=== PATIENT | male | born 1975 | race Caucasian/White ===

== ENCOUNTER 2019-08-18 10:57 | Emergency (ER) | payer MEDICAID, OTHER ==
[2019-08-18 11:49] VITALS: BP 138/97
--- NOTE | 2019-08-18 12:37 | UC ---
Upper Extremity HPI - HPI Summary HPI Summary: Pt presents with c/o atraumatic neck pain that radiates "down left arm" that began 7 days ago. Pt denies chest pain or SOB. Pt is a heavy every day smoker. He works as a patient transitional care nurse at assisted. Pt also reports that he pulle da tick off his chest yesterday morning. - History of Current Complaint Chief Complaint: UCBackPain Stated Complaint: LEFT NECK/ARM PAIN Time Seen by Provider: 08/18/19 12:12 Hx Obtained From: Patient ?: No Severity Initially: Severe Severity Currently: Severe Pain Intensity: 10 Location Of Pain: Radiates To - left arm Character: Dull, Aching Aggravating Factor(s): Movement, Lifting, Flexion, Extension Alleviating Factor(s): Nothing Associated Signs And Symptoms: Positive: Negative Related History: Dominant Hand Right - Risk Factors Non-Orthopedic Risk Factor: Negative DVT Risk Factors: Smoking Septic Arthritis Risk Factor: Negative Compartment Syndrome Risk Factors: Pain - Allergies/Home Medications Allergies/Adverse Reactions: Allergies Allergy/AdvReac Type Severity Reaction Status Date / Time No Known Allergies Allergy Verified 08/18/19 11:43 Home Medications: Home Medications Ibuprofen TAB* [Advil TAB*] 800 mg PO Q8H 08/18/19 [History Confirmed 08/18/19] PMH/Surg Hx/FS Hx/Imm Hx Previously Healthy: Yes - Surgical History Surgical History: Yes Surgery Procedure, Year, and Place: Lithotripsy 2017 - Family History Known Family History: Positive: Cardiac Disease - Social History Occupation: Employed Full-time Lives: With Family Alcohol Use: None Substance Use Type: None Smoking Status (MU): Heavy Every Day Tobacco Smoker Type: Cigarettes Amount Used/How Often: 2 PPD Have You Smoked in the Last Year: Yes Household Exposure Type: Cigarettes - Immunization History Most Recent Tetanus Shot: 1994 Vaccination Up to Date: No Review of Systems All Other Systems Reviewed And Are Negative: Yes Constitutional: Positive: Negative Skin: Positive: Negative Eyes: Positive: Negative ENT: Positive: Negative Respiratory: Positive: Negative Cardiovascular: Positive: Negative Gastrointestinal: Positive: Negative Genitourinary: Positive: Negative Motor: Positive: Negative Neurovascular: Positive: Negative Musculoskeletal: Positive: Myalgia - neck that radiates to left arm Neurological: Positive: Negative Psychological: Positive: Negative Is Patient Immunocompromised?: No Physical Exam Triage Information Reviewed: Yes Appearance: Ill-Appearing Vital Signs: Initial Vital Signs Temp 98.8 F 08/18/19 11:44 Pulse 96 08/18/19 11:44 Resp 16 08/18/19 11:44 BP 138/97 08/18/19 11:44 Pulse Ox 98 08/18/19 11:44 Vital Signs Reviewed: Yes Eye Exam: Normal ENT: Positive: Hearing grossly normal Dental Exam: Normal Neck: Positive: Other: - cervical tenderness, Cardiovascular Exam: Normal Cardiovascular: Positive: RRR Musculoskeletal: Positive: Other: - c/o neck and arm tenderness with PE, denies cp Neurological Exam: Normal Psychological Exam: Normal Skin Exam: Normal Upper Extremity Course/Dx - Course Course Of Treatment: I reviewed the pt's EKG results and recommended that he go to the closest ER for further evaluation and testing including R/O CT and lyme disease testing. EKG interpretation: [place]: interval Normal QRS: normal, NAZIA elevation in V2 and V4 likely early repolarization. Pt stated his was not likely to go to ER and thought he had muscle spasm. - Differential Dx/Diagnosis Differential Diagnosis/HQI/PQRI: Strain, Sprain Provider Diagnosis: Neck pain on left side, Left arm pain Discharge ED - Sign-Out/Discharge Documenting (check all that apply): Patient Departure All imaging exams completed and their final reports reviewed: No Studies - Discharge Plan Condition: Stable Disposition: AGAINST MEDICAL ADVICE Prescriptions: Cyclobenzaprine TAB* [Flexeril 10 MG TAB*] 10 mg PO Q8H PRN #15 tab PRN Reason: Pain - Mild Patient Education Materials: Cervical Strain (ED), Arm Pain (ED) Forms: *Work Release Referrals: Koby Summers [Primary Care Provider] - As Soon As Possible Additional Instructions: We recommend that you go directly to the closest emergency room for further testing and evaluation for the abnormality found on your EKG performed today. If your symptoms do not improve please call 911 for immediate emergency care and attention. - Billing Disposition and Condition Condition: STABLE Disposition: Against Medical Advice - Attestation Statements Provider Attestation: I was available for consult. This patient was seen by the [facility]. The patient was presented to me and plan of care discussed. I reviewed the EKG with following findings: HR~ 75, normal [place] and QRS, Left axis deviation, ST elevation from V2 to V4, No reciprocal changes seen, Likely Benign Early repolarization. Patient was not seen by or examined by me. -Marizol Delgado MD
== END 2019-08-18 12:46 | disposition left against medical advice (07) ==
LOC: UCCORT 10:57
DX: M79.602 Pain in left arm (principal); M54.2 Cervicalgia; F17.210 Nicotine dependence, cigarettes, uncomplicated
CPT/HCPCS: 93005; 99212; G0463